=== PATIENT | male | born 1985 | race Caucasian/White ===

== ENCOUNTER 2020-09-16 09:37 | Emergency (ER) | payer MEDICAID, OTHER ==
[~2020-09-16] VITALS: Ht 172.7 cm; Wt 63.5 kg
--- NOTE | 2020-09-16 09:52 | NUR ---
pt is a 34yo M, ambulatory. pt complains of ringing in his ears and stated "i feel like im losing my hearing". girlfriend at bedside. both stated that pt likes to listen to music with his headphones on a loud volume.
--- NOTE | 2020-09-16 09:55 | NUR ---
MD at bedside to assess pt
[2020-09-16 10:06] VITALS: BP 115/77
--- NOTE | 2020-09-16 10:06 | NUR ---
pt cleared for discharge by MD. pt given list of ENT doctors and pt instructions regarding tinnitus. verbalized understanding. stable condition, ambulatory
== END 2020-09-16 10:07 | disposition home or self-care (01) ==
LOC: ER 09:37
DX: H93.13 Tinnitus, bilateral (principal)
CPT/HCPCS: A4663